=== PATIENT | male | born 1945 | race Caucasian/White ===

== ENCOUNTER 2018-03-15 12:34 | Outpatient (CLI) | payer MEDICARE ==
--- NOTE | 2018-03-15 14:18 | RAD ---
RADIOGRAPH CHEST 2 VIEWS: DATE: 03-15-18 HISTORY: 72-year-old male with COPD. FINDINGS: There is no air space density, pulmonary edema, pleural effusion, pneumothorax, or cardiomegaly. IMPRESSION: No acute cardiopulmonary findings. sudha POS: FLORENCIO
== END 2018-03-15 12:35 | disposition home or self-care (01) ==
LOC: CP 12:34
PROVIDERS: ATTEND Internal Medicine Critical Care Medicine
DX: J44.9 Chronic obstructive pulmonary disease, unspecified (principal); R06.00 Dyspnea, unspecified
CPT/HCPCS: 71046; 94060; 94727; 94729

== ENCOUNTER 2018-12-14 08:38 | Outpatient (CLI) | payer OTHER ==
--- NOTE | 2018-12-14 14:42 | NM ---
NUCLEAR MEDICINE [place] SCAN BRAIN: DATE: 12/14/2018. HISTORY: A 73-year-old male with tremor, unspecified, ICD-10: R25.1. TECHNIQUE: Pretreated with 130 mg potassium iodide p.o. 1 hour prior to injection of radiopharmaceutical. 5.4 mCi of I-123 Ioflupane injected. 3 hour delayed SPECT images obtained in axial plane. FINDINGS: There is uptake in the bilateral caudate nuclei, asymmetrically greater on the left than right. Ther e is no significant uptake in either the right or left putamen. IMPRESSION: Abnormal scan, positive for Parkinsonism. POS: EDITA
== END 2018-12-14 08:39 | disposition home or self-care (01) ==
LOC: NM 08:38
PROVIDERS: ATTEND Internal Medicine
DX: R25.1 Tremor, unspecified (principal); G20 Parkinson's disease
CPT/HCPCS: 78607; A9584

== ENCOUNTER 2019-12-18 13:45 | Outpatient (CLI) | payer MEDICARE, OTHER ==
--- NOTE | 2019-12-18 16:10 | RAD ---
PA AND LATERAL CHEST: Indication: Dyspnea. Comparison: 01-20-16 FINDINGS: Scattered emphysema is similar appearing. No focal consolidation, pleural effusion or pneumothorax is evident. Mild cardiomegaly is stable. Multilevel spondylosis of the thoracic spine is similar. IMPRESSION: No acute cardiopulmonary abnormality. POS: CET
== END 2019-12-18 13:46 | disposition home or self-care (01) ==
LOC: RAD 13:45
PROVIDERS: ATTEND Internal Medicine Critical Care Medicine
DX: R06.00 Dyspnea, unspecified (principal)
CPT/HCPCS: 71046

== ENCOUNTER 2020-01-02 12:44 | Outpatient (CLI) | payer MEDICARE, OTHER ==
--- NOTE | 2020-01-02 13:54 | RAD ---
CHEST 2 VIEWS: HISTORY: Dyspnea. COMPARISON: 12/18/2019. FINDINGS: Minimal hyperinflation and chronic lung changes, stable. Multiple healed right rib fractures. Heart size is within normal limits. No significant acute confluent pneumonia, overt edema, or pleural eff usion. IMPRESSION: Stable chronic changes. No significant new process. POS: MIGUEL ÁNGEL
== END 2020-01-02 12:45 | disposition home or self-care (01) ==
LOC: RAD 12:44
PROVIDERS: ATTEND Internal Medicine Critical Care Medicine
DX: R06.00 Dyspnea, unspecified (principal)
CPT/HCPCS: 71046

== ENCOUNTER 2021-12-29 13:24 | Inpatient (IN) | payer MEDICARE ==
[~2021-12-29 13:24] MED LIST: Iopamidol 370 76% 100 ML VIAL ONE
[2021-12-29 13:49] LABS: Actual Bicarbonate (HCO3a) 20.9 mEq/L (22-28); Analyzer IN Cardio ER; CO2 Tension 37.4 mmHg (35.0-45.0); Calcium, Ionized (arterial) 1.17 mmol/L (1.12-1.30); Carboxyhemoglobin (COHb) 0.3 gm% (0.0-3.0); Hemoglobin (Hb) 11.6 g/dL (14.0-18.0); Potassium - ABG Lab 4.52 mmol/L (3.70-5.30); pH, Arterial 7.37 (7.35-7.45)
[2021-12-29 13:54] LABS: O2 Tension (PaO2), arterial 55.1 mmHg (> 70.0); Puncture Site RRA
[2021-12-29 14:06] LABS: #Lymphocytes 0.8 thou/uL (1.20-3.40); #Monocytes 0.7 thou/uL (0.11-0.59); #Neutrophils 6.5 thou/uL (1.40-6.50); %Basophils 0.1 % (0.0-1.0); %Eosinophils 0.4 % (0.0-10.0); %Lymphocytes 10.1 % (21.0-51.0); %Monocytes 8.5 % (0.0-10.0); Hemoglobin 11.5 g/dL (14.0-18.0); Mean Corpuscular HGB CONC 32.9 g/dL (32.0-36.0); Mean Corpuscular Hemoglobin 33.1 pg (27.0-31.0); Mean Platelet Volume 7.6 fL (7.4-10.4); Platelet Count 174 thou/uL (130-400); RBC Distribution Width 11.5 % (11.5-14.5); Red Blood Cell (RBC) Count 3.47 mill/uL (4.70-6.10); White Blood Cell (WBC) Count 8.1 thou/uL (4.8-10.8)
[2021-12-29 14:25] LABS: INR-International Normal Ratio 1.3; PTT 31.8 sec (22.9-36.1); Prothrombin Time 16.6 sec (12.0-14.7)
[2021-12-29 14:26] LABS: D-Dimer Test 0.84 *mcg/mL (0.27-0.43)
[2021-12-29 14:27] LABS: ALT (SGPT) 17 U/L (8-55); AST (SGOT) 15 U/L (5-34); Albumin 4.1 g/dL (3.4-4.8); Alkaline Phosphatase 71 U/L (40-110); Anion Gap 20 mmol/L (10-20); BUN (Urea Nitrogen) 32 mg/dL (8.4-25.7); Bilirubin, Total 0.6 mg/dL (0.2-1.2); Calc. Creatinine Clearance 0 mL/min (70-130); Carbon Dioxide 22 mmol/L (23-31); Chloride 105 mmol/L (98-107); Globulin 2.7 g/dL (2.4-3.5); Glucose 166 mg/dL (83-110); Potassium 5.5 mmol/L (3.5-5.1); Protein, Total 6.8 g/dL (5.8-8.1); Sodium 141 mmol/L (136-145)
[2021-12-29] MEDS ORDERED: cefTRIAXone\\ROCEPHIN 1 GM VIAL ONE (15:07)
[2021-12-29] MEDS ORDERED: Azithromycin 500 MG VIAL ONE (15:41)
[2021-12-29] MEDS ORDERED: Sodium Bicarb 50 MEQ/50 ML Abboject 8.4% SYRINGE ONE (15:41)
[2021-12-29] MEDS ORDERED: Calcium Chloride 1 GM/10 ML Abboject SYRINGE ONE (15:46)
[2021-12-29] MEDS ORDERED: Acetaminophen 325 MG TAB PO PRN (15:48)
[2021-12-29] MEDS ORDERED: Ondansetron PF 4 MG/2 ML Vial IVP PRN (15:48)
[2021-12-29] MEDS ORDERED: Vancomycin HCl 500 MG in Sodium Chloride 0.9% 100 ML IVPB SCH (16:00)
[2021-12-29] MEDS ORDERED: VANCOMYCIN 2 GRAM/400 ML BAG 2 GM in Premix Bag 1 BAG IVPB SCH (16:30)
[2021-12-29] MEDS ORDERED: metroNIDAZOLE 500 MG in Premix Bag 1 BAG IVPB SCH (16:45)
[2021-12-29] MEDS ORDERED: Rivaroxaban 10 MG TAB PO SCH (17:00)
[2021-12-29 18:21] LABS: Bilirubin Negative (Negative); Blood, Urine Negative (Negative); Clarity Clear (Clear); Glucose, Urine (Dipstick) Normal (Negative); Ketone, Urine Negative (Negative); Leukocyte Negative Leu/uL (Negative); Nitrite Negative (Negative); Protein, Urine (Dipstick) Negative (Neg-Trace); Specific Gravity, Urine 1.015 (1.002-1.036); Urobilinogen Normal mg/dL (Less than 2)
[2021-12-29 18:59] LABS: SARS-CoV-2 NAA Rapid Test Not Detected (NotDetected)
[2021-12-29] MEDS: Lactated Ringer's 1,000 ML IV SCH (20:17)
[2021-12-29] MEDS: Rosuvastatin 20 MG TAB PO SCH (20:52)
[2021-12-29] MEDS: Gabapentin 300 MG CAP PO SCH (20:52)
[2021-12-29] MEDS: Cefepime 2 GM in Sodium Chloride 0.9% 100 ML IVPB SCH (23:14)
[2021-12-29] MEDS: traMADol HCl 50 MG TAB PO PRN (23:15)
[2021-12-30] MEDS: Acetaminophen/Codeine 30-300mg Tablet PO PRN ×2 (00:39→04:24)
[2021-12-30 04:30] VITALS: BMI 28.9
[2021-12-30 05:17] LABS: Anion Gap 10 mmol/L (10-20); BUN (Urea Nitrogen) 24 mg/dL (8.4-25.7); Calc. Creatinine Clearance 62 mL/min (70-130); Carbon Dioxide 24 mmol/L (23-31); Chloride 108 mmol/L (98-107); Glucose 140 mg/dL (83-110); Potassium 5.4 mmol/L (3.5-5.1); Sodium 137 mmol/L (136-145)
[2021-12-30 06:34] LABS: Band 24 % (5-11); Hemoglobin 10.2 g/dL (14.0-18.0); Lymphocytes 7 % (21-51); MDiff Complete? YES; Mean Corpuscular HGB CONC 32.6 g/dL (32.0-36.0); Mean Corpuscular Hemoglobin 34.2 pg (27.0-31.0); Mean Platelet Volume 8.1 fL (7.4-10.4); Monocytes 7 % (0-10); Neutrophil 62 % (42-75); Platelet Count 165 thou/uL (130-400); Platelet Morphology Comment Appears Adequate; RBC Distribution Width 11.7 % (11.5-14.5); RBC Morphology Normal; Red Blood Cell (RBC) Count 2.98 mill/uL (4.70-6.10); White Blood Cell (WBC) Count 13.4 thou/uL (4.8-10.8)
[2021-12-30] MEDS: Lactated Ringer's 1,000 ML IV SCH ×2 (07:31→18:56)
[2021-12-30] MEDS ORDERED: hydrALAZINE 20 MG/ML VIAL SLOW IVP PRN (07:54)
[2021-12-30] MEDS ORDERED: Acetaminophen 650 MG Suppository PR PRN (07:54)
[2021-12-30] MEDS ORDERED: Bisacodyl 10 MG SUPP PR PRN (07:54)
[2021-12-30] MEDS ORDERED: Calcium Carbonate 500 MG ChewTAB PO PRN (07:54)
[2021-12-30] MEDS ORDERED: Hydrocerin (Eucerin) Cream 120 gm Jar TOP PRN (07:54)
[2021-12-30] MEDS ORDERED: Metoprolol Tartrate 100 MG TAB PO SCH (09:00)
[2021-12-30] MEDS ORDERED: Citalopram 20 MG TAB PO SCH (09:00)
[2021-12-30] MEDS ORDERED: Amlodipine 10 MG TAB PO SCH (09:00)
[2021-12-30] MEDS ORDERED: Aspirin 81 mg Enteric Coated Tablet PO SCH (09:00)
[2021-12-30] MEDS: metroNIDAZOLE 500 MG TAB PO SCH ×3 (09:14→21:29)
[2021-12-30] MEDS: Aspirin Chewable 81 MG TAB PO SCH (09:14)
[2021-12-30] MEDS: Citalopram 20 MG TAB PO SCH (09:14)
[2021-12-30] MEDS: traMADol HCl 50 MG TAB PO PRN ×2 (09:14→12:42)
[2021-12-30] MEDS: Pantoprazole 40 MG VIAL IVP SCH (09:15)
[2021-12-30] MEDS: Cefepime 2 GM in Sodium Chloride 0.9% 100 ML IVPB SCH ×2 (09:15→21:26)
[2021-12-30] MEDS: Artificial Tear Sol 15 ML BOT EA EYE PRN (16:40)
[2021-12-30] MEDS ORDERED: Rivaroxaban 10 MG TAB PO SCH (17:00)
[2021-12-30] MEDS: rOPINIRole HCl 2 MG TAB PO SCH ×2 (17:17→21:29)
[2021-12-30] MEDS ORDERED: Vancomycin 1.5 GRAM/300 ML BAG 1.5 GM in Premix Bag 1 BAG IVPB SCH (18:00)
[2021-12-30] MEDS: Gabapentin 300 MG CAP PO SCH (21:27)
[2021-12-30] MEDS: Rosuvastatin 20 MG TAB PO SCH (21:28)
[2021-12-30] MEDS: Metoprolol Tartrate 25 MG TAB PO SCH (21:28)
[2021-12-30] MEDS: busPIRone HCl 10 MG TAB PO SCH (21:29)
[2021-12-31 06:02] LABS: #Basophils 0.1 thou/uL (0.0-0.2); #Eosinphils 0.3 thou/uL (0.0-0.7); #Lymphocytes 1.9 thou/uL (1.20-3.40); #Monocytes 0.9 thou/uL (0.11-0.59); #Neutrophils 7.1 thou/uL (1.40-6.50); %Basophils 0.7 % (0.0-1.0); %Eosinophils 2.7 % (0.0-10.0); %Lymphocytes 18.2 % (21.0-51.0); %Monocytes 8.7 % (0.0-10.0); %Neutrophils 69.7 % (42.0-75.0); Hemoglobin 11.3 g/dL (14.0-18.0); Mean Corpuscular HGB CONC 32.7 g/dL (32.0-36.0); Mean Corpuscular Hemoglobin 33.2 pg (27.0-31.0); Mean Platelet Volume 7.5 fL (7.4-10.4); Platelet Count 199 thou/uL (130-400); RBC Distribution Width 11.6 % (11.5-14.5); White Blood Cell (WBC) Count 10.2 thou/uL (4.8-10.8)
[2021-12-31 06:09] LABS: INR-International Normal Ratio 1.4; Prothrombin Time 17.6 sec (12.0-14.7)
[2021-12-31 06:36] LABS: ALT (SGPT) 28 U/L (8-55); AST (SGOT) 29 U/L (5-34); Albumin 3.7 g/dL (3.4-4.8); Alkaline Phosphatase 57 U/L (40-110); Anion Gap 13 mmol/L (10-20); BUN (Urea Nitrogen) 21 mg/dL (8.4-25.7); Bilirubin, Total 0.5 mg/dL (0.2-1.2); Calc. Creatinine Clearance 75 mL/min (70-130); Calcium 9.2 mg/dL (7.8-10.44); Carbon Dioxide 23 mmol/L (23-31); Chloride 105 mmol/L (98-107); Globulin 2.8 g/dL (2.4-3.5); Glucose 86 mg/dL (83-110); Magnesium 1.7 mg/dL (1.6-2.6); Phosphorus 3.8 mg/dL (2.3-4.7); Potassium 3.9 mmol/L (3.5-5.1); Protein, Total 6.5 g/dL (5.8-8.1); Sodium 137 mmol/L (136-145)
[2021-12-31] MEDS: Lactated Ringer's 1,000 ML IV SCH (07:22)
[2021-12-31] MEDS: traMADol HCl 50 MG TAB PO PRN ×2 (07:23→14:10)
[2021-12-31 07:44] VITALS: BP 124/63; TEMP 97.9
[2021-12-31] MEDS: Aspirin Chewable 81 MG TAB PO SCH (08:45)
[2021-12-31] MEDS: Metoprolol Tartrate 25 MG TAB PO SCH (08:46)
[2021-12-31] MEDS: Citalopram 20 MG TAB PO SCH (08:46)
[2021-12-31] MEDS: busPIRone HCl 10 MG TAB PO SCH (08:47)
[2021-12-31] MEDS: Pantoprazole 40 MG VIAL IVP SCH (08:51)
[2021-12-31] MEDS: metroNIDAZOLE 500 MG TAB PO SCH (08:58)
[2021-12-31] MEDS: Cefepime 2 GM in Sodium Chloride 0.9% 100 ML IVPB SCH (08:58)
[2021-12-31] MEDS ORDERED: Cyanocobalamin (Vitamin B-12) 1,000 MCG TAB PO SCH (09:00)
[2021-12-31] MEDS ORDERED: Folic Acid 1 MG TAB PO SCH (09:00)
[2021-12-31] MEDS: rOPINIRole HCl 2 MG TAB PO SCH ×2 (09:50→14:11)
[2021-12-31] MEDS: Sodium Chloride 0.65% Nasal 44 ML BOT EA NARE PRN ×2 (09:51→09:55)
[2021-12-31] MEDS: Artificial Tear Sol 15 ML BOT EA EYE PRN (09:55)
[2021-12-31] MEDS ORDERED: Ketorolac Tromethamine 10 MG TAB PO SCH (12:30)
== END 2021-12-31 15:45 | DRG 871 ==
LOC: ERS 13:24 → ERHOLD 15:45 → 2NO 18:50 → T4-A 12-30 11:52
PROVIDERS: ADMIT Hospitalist; ATTEND Internal Medicine
DX: A41.9 Sepsis, unspecified organism (principal); Z20.822 Contact with and (suspected) exposure to COVID-19; Z66 Do not resuscitate; J69.0 Pneumonitis due to inhalation of food and vomit; J96.01 Acute respiratory failure with hypoxia; G93.41 Metabolic encephalopathy; N17.9 Acute kidney failure, unspecified; E87.5 Hyperkalemia; R65.20 Severe sepsis without septic shock; F41.9 Anxiety disorder, unspecified; F32.A Depression, unspecified; E78.5 Hyperlipidemia, unspecified; K21.9 Gastro-esophageal reflux disease without esophagitis; I10 Essential (primary) hypertension; I25.10 Atherosclerotic heart disease of native coronary artery without angina pectoris; F02.80 Dementia in other diseases classified elsewhere, unspecified severity, without behavioral disturbance, psychotic disturbance, mood disturbance, and anxiety; E78.00 Pure hypercholesterolemia, unspecified; Z96.643 Presence of artificial hip joint, bilateral; G89.29 Other chronic pain; I73.9 Peripheral vascular disease, unspecified; M54.9 Dorsalgia, unspecified; J44.9 Chronic obstructive pulmonary disease, unspecified; E86.0 Dehydration; D53.9 Nutritional anemia, unspecified; G20 Parkinson's disease; Z86.711 Personal history of pulmonary embolism; Z88.0 Allergy status to penicillin; Z86.73 Personal history of transient ischemic attack (TIA), and cerebral infarction without residual deficits; Z90.49 Acquired absence of other specified parts of digestive tract; Z98.890 Other specified postprocedural states; Z78.1 Physical restraint status; Z79.899 Other long term (current) drug therapy; Z79.82 Long term (current) use of aspirin; Z79.01 Long term (current) use of anticoagulants; Z82.49 Family history of ischemic heart disease and other diseases of the circulatory system; Z82.0 Family history of epilepsy and other diseases of the nervous system; Z87.891 Personal history of nicotine dependence
CPT/HCPCS: 0240U; 36415; 36416; 36600; 70450; 71045; 71275; 80048; 80053; 81003; 82805; 83605; 83735; 83880; 84100; 84484; 85025; 85379; 85610; 85730; 87040; 87086; 87149; 93005; 94760; C9113; J0456; J0692; J0696; J3370; J3490; J7120; Q9967; U0002